=== PATIENT | female | born 1955 | race Caucasian/White ===

== ENCOUNTER 2020-05-05 03:21 | Observation (INO) | payer MEDICARE, OTHER ==
[~2020-05-05] VITALS: Ht 162.6 cm; Wt 75.0 kg
--- NOTE | 2020-05-05 03:45 | PHYS DOC ---
General Adult EDM: Chief Complaint: CHEST WALL PAIN HPI: HPI: Patient is a 64 year old female who presents with complaints of chest pain. Patient states that around 3:00 this morning she was awoken by a pressure sensation in her chest that was bilateral anterior and nonradiating. Patient reports that she feels like she cannot take a deep breath. She denies any nausea, vomiting, diaphoresis, change in cough, fever, chills or sweats. Patient denied nausea, vomiting, melena or hematochezia. The pain is been constant and has not resolved. Patient reports she has had no change in exercise tolerance in the last month. Review of Systems: Review of Systems: Constitutional: Denies fever or chills. [] Eyes: Denies change in visual acuity. [] HENT: Denies nasal congestion or sore throat. [] Respiratory: See HPI [] Cardiovascular: See HPI [] GI: Denies abdominal pain, nausea, vomiting, bloody stools or diarrhea. [] : Denies dysuria. [] Musculoskeletal: Denies back pain or joint pain. [] Integument: Denies rash. [] Neurologic: Denies headache, focal weakness or sensory changes. [] Endocrine: Denies polyuria or polydipsia. [] Lymphatic: Denies swollen glands. [] Psychiatric: Denies depression or anxiety. [] Heart Score: HEART Score for Chest Pain: HEART Score for Chest Pain Response (Comments) Value History Moderately Suspicious 1 ECG Normal 0 Age > 65 2 Risk Factors >3 Risk Factors or Hx CAD 2 Total 5 Risk Factors: Risk Factors: DM, Current or recent (<one month) smoker, HTN, HLP, family history of CAD, obesity. Risk Scores: Score 0 - 3: 2.5% MACE over next 6 weeks - Discharge Home Score 4 - 6: 20.3% MACE over next 6 weeks - Admit for Clinical Observation Score 7 - 10: 72.7% MACE over next 6 weeks - Early Invasive Strategies Allergies: Allergies: Allergies Coded Allergies Type Severity Reaction Last Updated Verified ciprofloxacin Allergy Unknown 05/05/20 Yes latex Allergy Unknown 05/05/20 Yes sulfamethoxazole Allergy Unknown 05/05/20 Yes trimethoprim Allergy Unknown 05/05/20 Yes Physical Exam: PE: Constitutional: Well developed, well nourished, no acute distress, non-toxic appearance. [] HENT: Normocephalic, atraumatic, bilateral external ears normal, oropharynx moist, no oral exudates, nose normal. [] Eyes: PERRLA, EOMI, conjunctiva normal, no discharge. [] Neck: Normal range of motion, no tenderness, supple, no stridor. [] Cardiovascular:Heart rate regular rhythm, grade 1/6 systolic murmur, chest wall tender to palpation but does not reproduce the pain, no S3 or S4, no JVD, bruit or shift of PMI, pulses 1/2 dorsalis pedis bilaterally [] Lungs & Thorax: Bilateral breath sounds clear to auscultation [] Abdomen: Bowel sounds normal, soft, no tenderness, no masses, no pulsatile masses. [] Skin: Warm, dry, no erythema, no rash. [] Back: No tenderness, no CVA tenderness. [] Extremities: No tenderness, no cyanosis, moderate clubbing, ROM intact, no edema. Symmetric radial pulses bilaterally. [] Neurologic: Alert and oriented X 3, normal motor function, normal sensory function, no focal deficits noted. [] Psychologic: Anxious affect, judgement normal, mood anxious. [] EKG: EK bpm, sinus rhythm, incomplete right bundle branch block, abnormal EKG normal axis normal intervals [] Radiology/Procedures: Radiology/Procedures: [] Course & Med Decision Making: Course & Med Decision Making Pertinent Labs and Imaging studies reviewed. (See chart for details) 0526-patient was seen and reevaluated. Patient reports that although the pain i mproved from the medications rendered here in the emergency department it did not resolve her chest pain. I discussed with the patient her laboratory testing. At this time as second troponin is pending. The patient will be turned over to Dr. Jacinto at 0600. [] Dragon Disclaimer: Dragon Disclaimer: This electronic medical record was generated, in whole or in part, using a voice recognition dictation system. Departure Departure Referrals: KAILA MONTIEL MD (PCP) Justicifation of Admission Dx: Justifications for Admission: Justification of Admission Dx: N/A GABRIELLE FERNANDEZ MD May 05, 2020 03:45
[2020-05-05 04:09] LABS: BASO # 0.1 x10^3/uL (0.0-0.2); BASO % 1 % (0-3); EOS # 0.2 x10^3/uL (0.0-0.7); EOS % 2 % (0-3); HEMATOCRIT 41.8 % (36.0-47.0); HEMOGLOBIN 14.2 g/dL (12.0-15.5); LYMPH # 1.9 x10^3/uL (1.0-4.8); LYMPH % 23 % (24-48); MEAN CORPUSCULAR HEMOGLOBIN 33 pg (25-35); MEAN CORPUSCULAR HGB CONC 34 g/dL (31-37); MEAN CORPUSCULAR VOLUME 96 fL (79-100); MONO # 0.8 x10^3/uL (0.0-1.1); MONO % 10 % (0-9); NEUT # 5.4 x10^3/uL (1.8-7.7); NEUT % 64 % (31-73); PLATELET COUNT 200 x10^3/uL (140-400); RED BLOOD COUNT 4.37 x10^6/uL (3.50-5.40); RED CELL DISTRIBUTION WIDTH 13.8 % (11.5-14.5); WHITE BLOOD COUNT 8.4 x10^3/uL (4.0-11.0)
[2020-05-05] MEDS ORDERED: FAMOTIDINE 20 MG TABLET. PO ONE (04:15)
[2020-05-05] MEDS ORDERED: MAG HYDROX/ALUMINUM HYD/SIMETH 30 ML ORAL.SUSP PO ONE (04:15)
[2020-05-05] MEDS ORDERED: ASPIRIN CHEWABLE 81 MG TABLET. PO ONE (04:15)
[2020-05-05] MEDS ORDERED: IV NORMAL SALINE 500ML BAG 500 ML IV ONE (04:15)
[2020-05-05 04:18] LABS: CALCIUM 9.2 mg/dL (8.5-10.1); CREATININE 0.6 mg/dL (0.6-1.0); POTASSIUM 3.6 mmol/L (3.5-5.1)
[2020-05-05 04:19] LABS: PROTHROMBIN TIME PATIENT 12.4 SEC (11.7-14.0)
[2020-05-05 04:23] LABS: D-DIMER 0.51 ug/mlFEU (0.00-0.50)
[2020-05-05 04:24] LABS: ALBUMIN 3.6 g/dL (3.4-5.0); ALBUMIN/GLOBULIN RATIO 0.8 (1.0-1.7); TOTAL BILIRUBIN 0.6 mg/dL (0.2-1.0); TOTAL PROTEIN 7.9 g/dL (6.4-8.2)
--- NOTE | 2020-05-05 05:17 | RAD ---
INDICATION: Reason: Chest pain / Spl. Instructions: / History: COMPARISON: None. FINDINGS: 2 views of the chest obtained. Cardiac silhouette is not enlarged. There is some calcified lymph nodes seen within the mediastinum which could be sequela of old granulomatous disease. Degenerative changes of the spine with osteophyte formation and osseous demineralization. Mild disorganization of the pulmonary markings without focal airspace consolidation. IMPRESSION: * No focal airspace consolidation. * There is some disorganization of the pulmonary markings. Correlate for possible causes such as emphysema or asthma. Electronically signed by: Tyree Santos MD (05/05/2020 5:14 AM) [id number]
--- NOTE | 2020-05-05 08:40 | PDOC1 ---
History and Physical Date of Admission Date of Admission DATE: 05/05/20 TIME: 08:38 History of Present Illness History of Present Illness Ms Bullock is a 64 yo F with past medical history of hyperlipidemia who presents via private vehicle driven by her with complaints of chest pain. Patient states that around 0245 this morning she was awoken by a pressure sensation in her chest that was bilateral anterior and radiating into bilateral shoulders and mid-back. Patient reports that she feels like she cannot take a deep breath. She denies any nausea, vomiting, diaphoresis, change in cough, fever, chills or sweats. Patient denied nausea, vomiting, melena or hematochezia. The pain is been constant and has not resolved, but improved with ASA and GI cocktail. Patient reports she has had no change in exercise tolerance in the last month. She does not drink alcohol, and yesterday eggs salad for dinner and had celery and carrots for lunch. She notes she is never experienced a sensation like this. She does note she had a treadmill stress test at [facility] 10 years ago and had a coronary artery calcium score at that time she noted was elevated but failed to follow-up. She does continue to smoke. She is even more concerned because 3 years ago her had similar symptoms and had an IA. She has not had an EGD or GI work- up previously either. She has no recent travel, no recent sick contacts stays home with her . She has no leg swelling in either leg and no history of DVT or recent bedbound status or orthopedic surgery, no family history of blood clotting disorders that she is aware of. EKG appears 76 bpm, sinus rhythm, incomplete right bundle branch block, abnormal EKG normal axis normal intervals. 2 troponins are negative. D-dimer elevated 0.81, INR 1, WBC 8.4, Hb 14.2, platelets 200, LDL cholesterol 104, NA 140, K3.6, BUN 11, CR 0.6, glucose 106. Admitted to hospital for observation of her chest pain Past Medical History Cardiovascular: Hyperlipidemia Past Surgical History Past Surgical History: Colon Resection Family History Family History: Coronary Artery Disease, High Cholestrol, Hypertension Social History Smoke: 1 pack per day ALCOHOL: none Drugs: None Current Medications Current Medications Current Medications Aspirin (Aspirin Chewable) 162 mg 1X ONCE PO Last administered on 05/05/20at 04:33; Start 05/05/20 at 04:15; Stop 05/05/20 at 04:16; Status DC Al Hydroxide/Mg Hydroxide (Mylanta Plus Xs) 30 ml 1X ONCE PO Last administered on 05/05/20at 04:34; Start 05/05/20 at 04:15; Stop 05/05/20 at 04:16; Status DC Famotidine (Pepcid) 20 mg 1X ONCE PO Last administered on 05/05/20at 04:33; Start 05/05/20 at 04:15; Stop 05/05/20 at 04:16; Status DC Sodium Chloride 500 ml @ 500 mls/hr 1X ONCE IV Last administered on 05/05/20at 04:35; Start 05/05/20 at 04:15; Stop 05/05/20 at 05:14; Status DC Allergies Allergies: Coded Allergies: ciprofloxacin (Verified Allergy, Unknown, 05/05/20) latex (Verified Allergy, Unknown, 05/05/20) sulfamethoxazole (Verified Allergy, Unknown, 05/05/20) trimethoprim (Verified Allergy, Unknown, 05/05/20) ROS General: No: Chills, Night Sweats, Fatigue, Malaise, Appetite, Other PSYCHOLOGICAL ROS: No: Anxiety, Behavioral Disorder, Concentration difficultie, Decreased libido, Depression, Disorientation, Hallucinations, Hostility, Irritablity, Memory difficulties, Mood Swings, Obsessive thoughts, Physical abuse, Sexual abuse, Sleep disturbances, Suicidal ideation, Other Eyes: No Blurry vision, No Decreased vision, No Double vision, No Dry eyes, No Excessive tearing, No Eye Pain, No Itchy Eyes, No Loss of vision, No Photophobia, No Scotomata, No Uses contacts, No Uses glasses, No Other HEENT: No: Heacaches, Visual Changes, Hearing change, Nasal congestion, Nasal d ischarge, Oral lesions, Sinus pain, Sore Throat, Epistaxis, Sneezing, Snoring, Tinnitus, Vertigo, Vocal changes, Other ALLERGY AND IMMUNOLOGY: No: Hives, Insect Bite Sensitivity, Itchy/Watery Eyes, Nasal Congestion, Post Nasal Drip, Seasonal Allergies, Other Hematological and Lymphatic: No: Bleeding Problems, Blood Clots, Blood Transfusions, Brusing, Night Sweats, Pallor, Swollen Lymph Nodes, Other ENDOCRINE: No: Breast Changes, Galactorrhea, Hair Pattern Changes, Hot Flashes, Malaise/lethargy, Mood Swings, Palpitations, Polydipsia/polyuria, Skin Changes, Temperature Intolerance, Unexpected Weight Changes, Other Breast: No New/Changing Breast Lumps, No Nipple changes, No Nipple discharge, No Other Respiratory: YES: Shortness of breath; No: Cough, Hemoptysis, Orthopnea, Pleuritic Pain, SOB with excertion, Sputum Changes, Stridor, Tachypnea, Wheezing, Other Cardiovascular: yes Chest Pain; No Palpitations, No Orthopnea, No Paroxysmal Noc. Dyspnea, No Edema, No Lt Headedness, No Other Gastrointestinal: No Nausea, No Vomiting, No Abdominal Pain, No Diarrhea, No Constipation, No Melena, No Hematochezia, No Other Genitourinary: No Dysuria, No Frequency, No Incontinence, No Hematuria, No Retention, No Discharge, No Urgency, No Pain, No Flank Pain, No Other, No , No , No , No , No , No , No Musculoskeletal: No Gait Disturbance, No Joint Pain, No Joint Stiffness, No Joint Swelling, No Muscle Pain, No Muscular Weakness, No Pain In:, No Swelling In:, No Other Neurological: No Behavorial Changes, No Bowel/Bladder ControlChng, No Confusion, No Dizziness, No Gait Disturbance, No Headaches, No Impaired Coord/balance, No Memory Loss, No Numbness/Tingling, No Seizures, No Speech Problems, No Tremors, No Visual Changes, No Weakness, No Other Skin: No Dry Skin, No Eczema, No Hair Changes, No Lumps, No Mole Changes, No Mottling, No Nail Changes, No Pruritus, No Rash, No Skin Lesion Changes, No Other, No Acne Physical Exam General: Alert, Oriented X3, Cooperative, mild distress HEENT: Atraumatic, PERRLA, EOMI, Mucous membr. moist/pink Lungs: Clear to auscultation, Normal air movement Heart: S1S2, RRR, no thrills, no rubs, no gallops, no murmurs Abdomen: Normal bowel sounds, Soft, No tenderness, No hepatosplenomegaly, No masses Rectal Exam: not examined Extremities: No clubbing, No cyanosis, No edema, Normal pulses, No tenderness/swelling Skin: No rashes, No breakdown, No significant lesion Neuro: Normal gait, Normal speech, Strength at 5/5 X4 ext, Normal tone, Sensation intact, Cranial nerves 3-12 NL, Reflexes 2+ Psych/Mental Status: Mental status NL, Mood NL Vitals Vitals Vital Signs Date Time Temp Pulse Resp B/P (MAP) Pulse Ox O2 Delivery O2 Flow Rate FiO2 05/05/20 05:56 66 131/69 (89) 97 Room Air 05/05/20 03:25 97.8 20 97.8 Labs Labs Laboratory Tests Test 05/05/20 03:39 05/05/20 06:27 White Blood Count 8.4 x10^3/uL (4.0-11.0) Red Blood Count 4.37 x10^6/uL (3.50-5.40) Hemoglobin 14.2 g/dL (12.0-15.5) Hematocrit 41.8 % (36.0-47.0) Mean Corpuscular Volume 96 fL (79-100) Mean Corpuscular Hemoglobin 33 pg (25-35) Mean Corpuscular Hemoglobin Concent 34 g/dL (31-37) Red Cell Distribution Width 13.8 % (11.5-14.5) Platelet Count 200 x10^3/uL (140-400) Neutrophils (%) (Auto) 64 % (31-73) Lymphocytes (%) (Auto) 23 % (24-48) Monocytes (%) (Auto) 10 % (0-9) Eosinophils (%) (Auto) 2 % (0-3) Basophils (%) (Auto) 1 % (0-3) Neutrophils # (Auto) 5.4 x10^3/uL (1.8-7.7) Lymphocytes # (Auto) 1.9 x10^3/uL (1.0-4.8) Monocytes # (Auto) 0.8 x10^3/uL (0.0-1.1) Eosinophils # (Auto) 0.2 x10^3/uL (0.0-0.7) Basophils # (Auto) 0.1 x10^3/uL (0.0-0.2) Prothrombin Time 12.4 SEC (11.7-14.0) Prothromb Time International Ratio 1.0 (0.8-1.1) Activated Partial Thromboplast Time 33 SEC (24-38) D-Dimer (Laura) 0.51 ug/mlFEU (0.00-0.50) Sodium Level 140 mmol/L (136-145) Potassium Level 3.6 mmol/L (3.5-5.1) Chloride Level 105 mmol/L (98-107) Carbon Dioxide Level 29 mmol/L (21-32) Anion Gap 6 (6-14) Blood Urea Nitrogen 11 mg/dL (7-20) Creatinine 0.6 mg/dL (0.6-1.0) Estimated GFR (Cockcroft-Gault) 100.0 BUN/Creatinine Ratio 18 (6-20) Glucose Level 106 mg/dL (70-99) Calcium Level 9.2 mg/dL (8.5-10.1) Total Bilirubin 0.6 mg/dL (0.2-1.0) Aspartate Amino Transf (AST/SGOT) 22 U/L (15-37) Alanine Aminotransferase (ALT/SGPT) 20 U/L (14-59) Alkaline Phosphatase 94 U/L (46-116) Troponin I Quantitative < 0.017 ng/mL (0.000-0.055) < 0.017 ng/mL (0.000-0.055) Total Protein 7.9 g/dL (6.4-8.2) Albumin 3.6 g/dL (3.4-5.0) Albumin/Globulin Ratio 0.8 (1.0-1.7) Lipase 108 U/L (73-393) Laboratory Tests Test 05/05/20 03:39 05/05/20 06:27 White Blood Count 8.4 x10^3/uL (4.0-11.0) Red Blood Count 4.37 x10^6/uL (3.50-5.40) Hemoglobin 14.2 g/dL (12.0-15.5) Hematocrit 41.8 % (36.0-47.0) Mean Corpuscular Volume 96 fL (79-100) Mean Corpuscular Hemoglobin 33 pg (25-35) Mean Corpuscular Hemoglobin Concent 34 g/dL (31-37) Red Cell Distribution Width 13.8 % (11.5-14.5) Platelet Count 200 x10^3/uL (140-400) Neutrophils (%) (Auto) 64 % (31-73) Lymphocytes (%) (Auto) 23 % (24-48) Monocytes (%) (Auto) 10 % (0-9) Eosinophils (%) (Auto) 2 % (0-3) Basophils (%) (Auto) 1 % (0-3) Neutrophils # (Auto) 5.4 x10^3/uL (1.8-7.7) Lymphocytes # (Auto) 1.9 x10^3/uL (1.0-4.8) Monocytes # (Auto) 0.8 x10^3/uL (0.0-1.1) Eosinophils # (Auto) 0.2 x10^3/uL (0.0-0.7) Basophils # (Auto) 0.1 x10^3/uL (0.0-0.2) Prothrombin Time 12.4 SEC (11.7-14.0) Prothromb Time International Ratio 1.0 (0.8-1.1) Activated Partial Thromboplast Time 33 SEC (24-38) D-Dimer (Laura) 0.51 ug/mlFEU (0.00-0.50) Sodium Level 140 mmol/L (136-145) Potassium Level 3.6 mmol/L (3.5-5.1) Chloride Level 105 mmol/L (98-107) Carbon Dioxide Level 29 mmol/L (21-32) Anion Gap 6 (6-14) Blood Urea Nitrogen 11 mg/dL (7-20) Creatinine 0.6 mg/dL (0.6-1.0) Estimated GFR (Cockcroft-Gault) 100.0 BUN/Creatinine Ratio 18 (6-20) Glucose Level 106 mg/dL (70-99) Calcium Level 9.2 mg/dL (8.5-10.1) Total Bilirubin 0.6 mg/dL (0.2-1.0) Aspartate Amino Transf (AST/SGOT) 22 U/L (15-37) Alanine Aminotransferase (ALT/SGPT) 20 U/L (14-59) Alkaline Phosphatase 94 U/L (46-116) Troponin I Quantitative < 0.017 ng/mL (0.000-0.055) < 0.017 ng/mL (0.000-0.055) Total Protein 7.9 g/dL (6.4-8.2) Albumin 3.6 g/dL (3.4-5.0) Albumin/Globulin Ratio 0.8 (1.0-1.7) Lipase 108 U/L (73-393) Images Images CXR: Cardiac silhouette is not enlarged. There is some calcified lymph nodes seen within the mediastinum which could be sequela of old granulomatous disease. Degenerative changes of the spine with osteophyte formation and osseous demineralization. Mild disorganization of the pulmonary markings without focal airspace consolidation. IMPRESSION: * No focal airspace consolidation. * There is some disorganization of the pulmonary markings. Correlate for possible causes such as emphysema or asthma. VTE Prophylaxis Ordered VTE Prophylaxis Devices: No VTE Pharmacological Prophylaxi: No Assessment/Plan Assessment/Plan A/P: Chest pain -with radiation of back, and shoulders associated shortness of breath, with elevated d-dimer will obtain CTPA. Cardiology consulted for high risk cardiac status given her age smoking status family history. Echocardiogram or stress imaging indicated. Smoker - counseled on cessation HLDcontinue statin FEN - NPO PPX - Ambulatory, will initiate eliquis 10mg BID for 7 days and 5mg BID after if PE is present FULL CODE Dispo - observation for chest pain Justicifation of Admission Dx: Justifications for Admission: Justification of Admission Dx: N/A KELLY NAIDU MD May 05, 2020 08:40
[2020-05-05 09:33] LABS: CHOLESTEROL/HDL RATIO 2.7
--- NOTE | 2020-05-05 09:34 | EKG ---
[facility] [address] [place] [address] Test Date: 2020-05-05 Test Time: 03:27:00 Pat Name: ALICIA MISHRA Department: Room: Gender: F [employer]at [employer] Inspector: : [id number] Requested By: GABRIELLE FERNANDEZ Order Number: [id number] Reading MD: Measurements Intervals [place] Rate: 76 P: 59 HI: 134 QRS: 65 QRSD: 90 T: 74 QT: 378 QTc: 430 Interpretive Statements SINUS RHYTHM
[2020-05-05 10:00] VITALS: BP 140/79
[2020-05-05 11:00] VITALS: BP 113/83
[2020-05-05] MEDS ORDERED: LIDO:MAALOX 1:1 20 ML SINGLE DOSE. SWSW ONE (11:00)
[2020-05-05] MEDS ORDERED: CONTRAST GIVEN. MC PRN (11:15)
[2020-05-05] MEDS ORDERED: IOHEXOL 350 MG/ML 100 ML VIAL. IV ONE (11:15)
[2020-05-05] MEDS ORDERED: PRAV20TA2 PO (11:24)
[2020-05-05] MEDS ORDERED: LISI-334 PO (11:24)
--- NOTE | 2020-05-05 13:21 | RAD ---
Chest CTA History: Chest pain, elevated d-dimer Technique: After bolus of intravenous contrast, CT imaging was performed of the chest. Multiplanar reconstruction images to include MIP reconstruction images are submitted. Exposure: One or more of the following individualized dose reduction techniques were utilized for this examination: 1. Automated exposure control 2. Adjustment of the mA and/or kV according to patient size 3. Use of iterative reconstruction technique. Comparison: None Findings: No pulmonary embolism is identified. There is no pneumothorax or pericardial fluid. There is some coronary calcification. Thoracic aortic caliber is within normal limits, no intraluminal flap. There are some calcified mediastinal and right hilar nodes. There is no significant pleural fluid. There is moderate to severe emphysema. There is mild linear density in the left mainstem bronchus and trachea more likely due to mucus. There are splenic granulomas. There is right lower lobe subpleural nodule image 100 series 3 about 0.5 cm. There may be a small right lower lobe subpleural nodule 0.4 cm image 112 series 3, also, other adjacent subpleural right lower lobe nodules with the largest about 0.7 cm image 109 series 3. There is right lower lobe nodule about 0.7 cm image 105 series 3. There is possible subpleural right upper lobe nodule 0.4 cm image 23. There are couple of tiny right upper lobe nodules about 0.2 cm image 77. There is 0.2 cm right middle lobe nodule image 102. There is 0.5 cm left lower lobe nodule image 112 series 3. There are couple of subpleural left lower lobe nodules, largest of these about 0.6 cm best seen image 104, also smaller left lower lobe subpleural nodule image 101. There is 0.5 cm left lower lobe subpleural nodule image 85 series 3. There is 0.6 cm left lower lobe nodule image 43 series 3. There is left apical nodularity about 1.5 cm image 113 series 3. There is 0.3 cm left upper lobe nodule image 64. There is 0.4 cm nodule along the left major fissure image 76. Impression: 1. No pulmonary embolism is identified. There is moderate to severe emphysema. Mild linear density in the trachea and left mainstem bronchus is more likely due to mucus. 2. There are multiple bilateral lung nodules. 3-6 month follow-up is recommended as per revised Fleischner guidelines. Electronically signed by: Maxx Santillan MD (05/05/2020 1:18 PM) [id number]
--- NOTE | 2020-05-05 13:26 | NUR ---
SS following for discharge planning. SS reviewed pt chart and discussed with pt RN. Pt is from home with spouse and is currently on room air. Pt having ECHO and CT. Pt being scheduled for outpatient stress test. Discharge plan is to home when ready. SS will continue to follow for discharge planning.
--- NOTE | 2020-05-05 13:37 | PDOC2 ---
ADRIAN RUFF [employer] OPERATOR 05/05/20 1337: CARDIAC CONSULT DATE OF CONSULT Date of Consult DATE: 05/05/20 TIME: 13:27 REASON FOR CONSULT Reason for Consult: Chest pain REFERRING PHYSICIAN Referring Physician: Christopher SOURCE Source: Chart review, Patient HISTORY OF PRESENT ILLNESS HISTORY OF PRESENT ILLNESS This is a pleasant 64 yo female admitted for complains of chest pain. Reports that she woke up this morning around 3 AM with burning chest discomfort midchest that went up to her anterior neck. This radiated to immediate mid back at the level of her stomach where she was pointing and also felt that it went around both of her ribcage like it was stretching. No SOA and no nausea or diaphoresis. Reports no changes to her activity tolerance and this is the first time she had this discomfort. She does have occasional heartburn and eats a lot of spicy foods. No known PUD, CAD, VTE or arrhythmias. Denies any palpitations and no exertional chest pain nor PATRICIA. No recent falls or injury. She takes pravastatin and could not tolerate lipitor and also takes lisinopril. She smokes tobacco but has not been told of COPD. Reports that she had +calcium scoring about 6 yrs ago and was told will just need to be repeated in 5 yrs. PAST MEDICAL HISTORY Cardiovascular: HTN, Hyperlipidemia Pulmonary: No pertinent hx CENTRAL NERVOUS SYSTEM: Carpal Tunnel Syndrome GI: No pertinent hx Musculoskeletal: Osteoarthritis, Other (shoulder impingement syndrome) Dermatology: Squamous cell PAST SURGICAL HISTORY Past Surgical History: Arthroscopy (hand surgery; left shoulder surgery), Colon Resection (sigmoid), Other (skin CA removal, neuroma removal) FAMILY HISTORY Family History: Coronary Artery Disease (mother at 80s) SOCIAL HISTORY Smoke: 1 pack per day ALCOHOL: none Drugs: None Lives: with Family CURRENT MEDICATIONS CURRENT MEDICATIONS Current Medications Medications (Trade) Dose Ordered Sig/[place]cca Route PRN Reason Start Time Stop Time Status Last Admin Dose Admin Aspirin (Aspirin Chewable) 162 mg 1X ONCE PO 05/05/20 04:15 05/05/20 04:16 DC 05/05/20 04:33 Al Hydroxide/Mg Hydroxide (Mylanta Plus Xs) 30 ml 1X ONCE PO 05/05/20 04:15 05/05/20 04:16 DC 05/05/20 04:34 Famotidine (Pepcid) 20 mg 1X ONCE PO 05/05/20 04:15 05/05/20 04:16 DC 05/05/20 04:33 Sodium Chloride 500 ml @ 500 mls/hr 1X ONCE IV 05/05/20 04:15 05/05/20 05:14 DC 05/05/20 04:35 Iohexol (Omnipaque 350 Mg/ml) 100 ml 1X ONCE IV 05/05/20 11:15 05/05/20 11:16 DC 05/05/20 11:15 ALLERGIES ALLERGIES: Coded Allergies: acetaminophen (Verified Allergy, Unknown, 05/05/20) ciprofloxacin (Verified Allergy, Unknown, 05/05/20) hydrocodone (Verified Allergy, Unknown, 05/05/20) latex (Verified Allergy, Unknown, 05/05/20) sulfamethoxazole (Verified Allergy, Unknown, 05/05/20) trimethoprim (Verified Allergy, Unknown, 05/05/20) ROS Review of System 14 point ROS evaluated with pertinent positives noted per HPI PHYSICAL EXAM General: Alert, Oriented X3, Cooperative, No acute distress HEENT: Atraumatic, Mucous membr. moist/pink Lungs: Clear to auscultation, Normal air movement Heart: Regular rate (SR), Normal S1, Normal S2, No murmurs Abdomen: Soft, No tenderness Extremities: No cyanosis, No edema Skin: No breakdown, No significant lesion Neuro: Normal speech, Sensation intact Psych/Mental Status: Mental status NL, Mood NL MUSCULOSKELETAL: Osteoarthritic changes both hands VITALS/I&O VITALS/I&O: Vital Signs Date Time Temp Pulse Resp B/P (MAP) Pulse Ox O2 Delivery O2 Flow Rate FiO2 05/05/20 11:00 98.1 63 18 113/83 (93) 96 Room Air 98.1 LABS Lab: Laboratory Tests Test 05/05/20 03:39 05/05/20 06:27 White Blood Count 8.4 x10^3/uL (4.0-11.0) Red Blood Count 4.37 x10^6/uL (3.50-5.40) Hemoglobin 14.2 g/dL (12.0-15.5) Hematocrit 41.8 % (36.0-47.0) Mean Corpuscular Volume 96 fL (79-100) Mean Corpuscular Hemoglobin 33 pg (25-35) Mean Corpuscular Hemoglobin Concent 34 g/dL (31-37) Red Cell Distribution Width 13.8 % (11.5-14.5) Platelet Count 200 x10^3/uL (140-400) Neutrophils (%) (Auto) 64 % (31-73) Lymphocytes (%) (Auto) 23 % (24-48) L Monocytes (%) (Auto) 10 % (0-9) H Eosinophils (%) (Auto) 2 % (0-3) Basophils (%) (Auto) 1 % (0-3) Neutrophils # (Auto) 5.4 x10^3/uL (1.8-7.7) Lymphocytes # (Auto) 1.9 x10^3/uL (1.0-4.8) Monocytes # (Auto) 0.8 x10^3/uL (0.0-1.1) Eosinophils # (Auto) 0.2 x10^3/uL (0.0-0.7) Basophils # (Auto) 0.1 x10^3/uL (0.0-0.2) Prothrombin Time 12.4 SEC (11.7-14.0) Prothrombin Time INR 1.0 (0.8-1.1) Activated Partial Thromboplast Time 33 SEC (24-38) D-Dimer (Laura) 0.51 ug/mlFEU (0.00-0.50) H Sodium Level 140 mmol/L (136-145) Potassium Level 3.6 mmol/L (3.5-5.1) Chloride Level 105 mmol/L (98-107) Carbon Dioxide Level 29 mmol/L (21-32) Anion Gap 6 (6-14) Blood Urea Nitrogen 11 mg/dL (7-20) Creatinine 0.6 mg/dL (0.6-1.0) Estimated GFR (Cockcroft-Gault) 100.0 BUN/Creatinine Ratio 18 (6-20) Glucose Level 106 mg/dL (70-99) H Calcium Level 9.2 mg/dL (8.5-10.1) Total Bilirubin 0.6 mg/dL (0.2-1.0) Aspartate Amino Transferase (AST) 22 U/L (15-37) Alanine Aminotransferase (ALT) 20 U/L (14-59) Alkaline Phosphatase 94 U/L (46-116) Troponin I Quantitative < 0.017 ng/mL (0.000-0.055) < 0.017 ng/mL (0.000-0.055) Total Protein 7.9 g/dL (6.4-8.2) Albumin 3.6 g/dL (3.4-5.0) Albumin/Globulin Ratio 0.8 (1.0-1.7) L Triglycerides Level 58 mg/dL (0-150) Cholesterol Level 186 mg/dL (0-200) LDL Cholesterol, Calculated 104 mg/dL (0-100) H VLDL Cholesterol, Calculated 12 mg/dL (0-40) Non-HDL Cholesterol Calculated 116 mg/dL (0-129) HDL Cholesterol 70 mg/dL (40-60) H Cholesterol/HDL Ratio 2.7 Lipase 108 U/L (73-393) Laboratory Tests 05/05/20 03:39 Laboratory Tests 05/05/20 03:39 ASSESSMENT/PLAN ASSESSMENT/PLAN 1. Atypical CP: possibly GI. refused GI cocktail. trop nml, EKG no acute changes 2. HLP 3. HTN: controlled 4. Tobaccoism with undiagnosed COPD Recommendations 1. Continue home BP med and statin 2. She does take ASA at home. PPI 3. TTE today and if unremarkable then will plan for outpt treadmill MPI 4. Smoking cessation ARSLAN RICHARDSON MD 05/06/20 0740: CARDIAC CONSULT ASSESSMENT/PLAN ASSESSMENT/PLAN Late entry for 05/05/2020 Pt. seen and examined. Agree with above WORT EXTRACTOR note. ADRIAN RUFF APRN May 05, 2020 13:37 ARSLAN RICHARDSON MD May 06, 2020 07:40
[2020-05-05] MEDS ORDERED: PANTOPRAZOLE 40 MG TABLET.DR. PO SCH (15:00)
[2020-05-05] MEDS ORDERED: PANT40TA77 PO (15:11)
[2020-05-05] MEDS ORDERED: FAMO-63 PO (15:11)
--- NOTE | 2020-05-05 15:18 | PDOC3 ---
Discharge Summary Visit Information Date of Admission: May 05, 2020 Date of Discharge: May 05, 2020 Admitting Diagnosis: Chest pain Final Diagnosis Problems Medical Problems: (1) Chest pain Status: Acute Brief Hospital Course Allergies Allergies Coded Allergies Type Severity Reaction Last Updated Verified acetaminophen Allergy Unknown 05/05/20 Yes ciprofloxacin Allergy Unknown 05/05/20 Yes hydrocodone Allergy Unknown 05/05/20 Yes latex Allergy Unknown 05/05/20 Yes sulfamethoxazole Allergy Unknown 05/05/20 Yes trimethoprim Allergy Unknown 05/05/20 Yes Vital Signs Vital Signs Date Time Temp Pulse Resp B/P (MAP) Pulse Ox O2 Delivery O2 Flow Rate FiO2 05/05/20 11:00 98.1 63 18 113/83 (93) 96 Room Air 98.1 Lab Results Laboratory Tests Test 05/05/20 03:39 05/05/20 06:27 05/05/20 12:50 White Blood Count 8.4 x10^3/uL (4.0-11.0) Red Blood Count 4.37 x10^6/uL (3.50-5.40) Hemoglobin 14.2 g/dL (12.0-15.5) Hematocrit 41.8 % (36.0-47.0) Mean Corpuscular Volume 96 fL (79-100) Mean Corpuscular Hemoglobin 33 pg (25-35) Mean Corpuscular Hemoglobin Concent 34 g/dL (31-37) Red Cell Distribution Width 13.8 % (11.5-14.5) Platelet Count 200 x10^3/uL (140-400) Neutrophils (%) (Auto) 64 % (31-73) Lymphocytes (%) (Auto) 23 % (24-48) Monocytes (%) (Auto) 10 % (0-9) Eosinophils (%) (Auto) 2 % (0-3) Basophils (%) (Auto) 1 % (0-3) Neutrophils # (Auto) 5.4 x10^3/uL (1.8-7.7) Lymphocytes # (Auto) 1.9 x10^3/uL (1.0-4.8) Monocytes # (Auto) 0.8 x10^3/uL (0.0-1.1) Eosinophils # (Auto) 0.2 x10^3/uL (0.0-0.7) Basophils # (Auto) 0.1 x10^3/uL (0.0-0.2) Prothrombin Time 12.4 SEC (11.7-14.0) Prothromb Time International Ratio 1.0 (0.8-1.1) Activated Partial Thromboplast Time 33 SEC (24-38) D-Dimer (Laura) 0.51 ug/mlFEU (0.00-0.50) Sodium Level 140 mmol/L (136-145) Potassium Level 3.6 mmol/L (3.5-5.1) Chloride Level 105 mmol/L (98-107) Carbon Dioxide Level 29 mmol/L (21-32) Anion Gap 6 (6-14) Blood Urea Nitrogen 11 mg/dL (7-20) Creatinine 0.6 mg/dL (0.6-1.0) Estimated GFR (Cockcroft-Gault) 100.0 BUN/Creatinine Ratio 18 (6-20) Glucose Level 106 mg/dL (70-99) Calcium Level 9.2 mg/dL (8.5-10.1) Total Bilirubin 0.6 mg/dL (0.2-1.0) Aspartate Amino Transf (AST/SGOT) 22 U/L (15-37) Alanine Aminotransferase (ALT/SGPT) 20 U/L (14-59) Alkaline Phosphatase 94 U/L (46-116) Troponin I Quantitative < 0.017 ng/mL (0.000-0.055) < 0.017 ng/mL (0.000-0.055) < 0.017 ng/mL (0.000-0.055) Total Protein 7.9 g/dL (6.4-8.2) Albumin 3.6 g/dL (3.4-5.0) Albumin/Globulin Ratio 0.8 (1.0-1.7) Triglycerides Level 58 mg/dL (0-150) Cholesterol Level 186 mg/dL (0-200) LDL Cholesterol, Calculated 104 mg/dL (0-100) VLDL Cholesterol, Calculated 12 mg/dL (0-40) Non-HDL Cholesterol Calculated 116 mg/dL (0-129) HDL Cholesterol 70 mg/dL (40-60) Cholesterol/HDL Ratio 2.7 Lipase 108 U/L (73-393) Laboratory Tests Test 05/05/20 03:39 05/05/20 06:27 05/05/20 12:50 White Blood Count 8.4 x10^3/uL (4.0-11.0) Red Blood Count 4.37 x10^6/uL (3.50-5.40) Hemoglobin 14.2 g/dL (12.0-15.5) Hematocrit 41.8 % (36.0-47.0) Mean Corpuscular Volume 96 fL (79-100) Mean Corpuscular Hemoglobin 33 pg (25-35) Mean Corpuscular Hemoglobin Concent 34 g/dL (31-37) Red Cell Distribution Width 13.8 % (11.5-14.5) Platelet Count 200 x10^3/uL (140-400) Neutrophils (%) (Auto) 64 % (31-73) Lymphocytes (%) (Auto) 23 % (24-48) Monocytes (%) (Auto) 10 % (0-9) Eosinophils (%) (Auto) 2 % (0-3) Basophils (%) (Auto) 1 % (0-3) Neutrophils # (Auto) 5.4 x10^3/uL (1.8-7.7) Lymphocytes # (Auto) 1.9 x10^3/uL (1.0-4.8) Monocytes # (Auto) 0.8 x10^3/uL (0.0-1.1) Eosinophils # (Auto) 0.2 x10^3/uL (0.0-0.7) Basophils # (Auto) 0.1 x10^3/uL (0.0-0.2) Prothrombin Time 12.4 SEC (11.7-14.0) Prothromb Time International Ratio 1.0 (0.8-1.1) Activated Partial Thromboplast Time 33 SEC (24-38) D-Dimer (Laura) 0.51 ug/mlFEU (0.00-0.50) Sodium Level 140 mmol/L (136-145) Potassium Level 3.6 mmol/L (3.5-5.1) Chloride Level 105 mmol/L (98-107) Carbon Dioxide Level 29 mmol/L (21-32) Anion Gap 6 (6-14) Blood Urea Nitrogen 11 mg/dL (7-20) Creatinine 0.6 mg/dL (0.6-1.0) Estimated GFR (Cockcroft-Gault) 100.0 BUN/Creatinine Ratio 18 (6-20) Glucose Level 106 mg/dL (70-99) Calcium Level 9.2 mg/dL (8.5-10.1) Total Bilirubin 0.6 mg/dL (0.2-1.0) Aspartate Amino Transf (AST/SGOT) 22 U/L (15-37) Alanine Aminotransferase (ALT/SGPT) 20 U/L (14-59) Alkaline Phosphatase 94 U/L (46-116) Troponin I Quantitative < 0.017 ng/mL (0.000-0.055) < 0.017 ng/mL (0.000-0.055) < 0.017 ng/mL (0.000-0.055) Total Protein 7.9 g/dL (6.4-8.2) Albumin 3.6 g/dL (3.4-5.0) Albumin/Globulin Ratio 0.8 (1.0-1.7) Triglycerides Level 58 mg/dL (0-150) Cholesterol Level 186 mg/dL (0-200) LDL Cholesterol, Calculated 104 mg/dL (0-100) VLDL Cholesterol, Calculated 12 mg/dL (0-40) Non-HDL Cholesterol Calculated 116 mg/dL (0-129) HDL Cholesterol 70 mg/dL (40-60) Cholesterol/HDL Ratio 2.7 Lipase 108 U/L (73-393) Brief Hospital Course Ms Bullock is a 64 yo F with past medical history of hyperlipidemia who presents via private vehicle driven by her with complaints of chest pain. Patient states that around 0245 this morning she was awoken by a pressure sensation in her chest that was bilateral anterior and radiating into bilateral shoulders and mid-back. Patient reports that she feels like she cannot take a deep breath. She denies any nausea, vomiting, diaphoresis, change in cough, fever, chills or sweats. Patient denied nausea, vomiting, melena or hematochezia. The pain is been constant and has not resolved, but improved with ASA and GI cocktail. Patient reports she has had no change in exercise tolerance in the last month. She does not drink alcohol, and yesterday eggs salad for dinner and had celery and carrots for lunch. She notes she is never experienced a sensation like this. She does note she had a treadmill stress test at [facility] 10 years ago and had a coronary artery calcium score at that time she noted was elevated but failed to follow-up. She does continue to smoke. She is even more concerned because 3 years ago her had similar symptoms and had an IN. She has not had an EGD or GI work- up previously either. She has no recent travel, no recent sick contacts stays home with her . She has no leg swelling in either leg and no history of DVT or recent bedbound status or orthopedic surgery, no family history of blood clotting disorders that she is aware of. EKG appears 76 bpm, sinus rhythm, incomplete right bundle branch block, abnormal EKG normal axis normal intervals. 2 troponins are negative. D-dimer elevated 0.81, INR 1, WBC 8.4, Hb 14.2, platelets 200, LDL cholesterol 104, NA 140, K3.6, BUN 11, CR 0.6, glucose 106. Admitted to hospital for observation of her chest pain. Troponin x3 negative. Seen by cardiology will have outpatient follow-up. Echocardiogram with normal hemodynamics normal valves. CTPA: No pulmonary embolism is identified. There is no pneumothorax or pericardial fluid. There is some coronary calcification. Thoracic aortic caliber is within normal limits, no intraluminal flap. There are some calcified mediastinal and right hilar nodes. There is no significant pleural fluid. There is moderate to severe emphysema. There is mild linear density in the left mainstem bronchus and trachea more likely due to mucus. There are splenic granulomas. There is right lower lobe subpleural nodule image 100 series 3 about 0.5 cm. There may be a small right lower lobe subpleural nodule 0.4 cm image 112 series 3, also, other adjacent subpleural right lower lobe nodules with the largest about 0.7 cm image 109 series 3. There is right lower lobe nodule about 0.7 cm image 105 series 3. There is possible subpleural right upper lobe nodule 0.4 cm image 23. There are couple of tiny right upper lobe nodules about 0.2 cm image 77. There is 0.2 cm right middle lobe nodule image 102. There is 0.5 cm left lower lobe nodule image 112 series 3. There are couple of subpleural left lower lobe nodules, largest of these about 0.6 cm best seen image 104, also smaller left lower lobe subpleural nodule image 101. There is 0.5 cm left lower lobe subpleural nodule image 85 series 3. There is 0.6 cm left lower lobe nodule image 43 series 3. There is left apical nodularity about 1.5 cm image 113 series 3. There is 0.3 cm left upper lobe nodule image 64. There is 0.4 cm nodule along the left major fissure image 76. Impression: 1. No pulmonary embolism is identified. There is moderate to severe emphysema. Mild linear density in the trachea and left mainstem bronchus is more likely due to mucus. 2. There are multiple bilateral lung nodules. 3-6 month follow-up is recommended as per revised Fleischner guidelines. For further discussion she notes that she has a remote history of histoplasmosis and had not had follow-up since then. She has referral to Dr. Hoang Herrera to see outpatient Chest pain - likely GERD, will treat Smoker - counseled on cessation HLDcontinue statin Pulmonary nodules - needs pulm f/u H/o histoplasmosis - needs pulm f/u Greater than 135 minutes spent on d/c Discharge Information Condition at Discharge: Improved Follow Up: Weeks (1) Disposition/Orders: D/C to Home Scheduled Famotidine (Pepcid) 20 Mg Tablet, 20 MG PO BID for GERD for 30 Days, #60 Ref 11 Prescribed by: KELLY NAIDU MD on 05/05/20 1511 Lisinopril (Lisinopril) 20 Mg Tablet, 20 MG PO HS for FOR HYPERTENSION, #30 Ref 0 (Reported) Entered as Reported by: MIRYAM GUTIERREZ on 05/05/201123 Last Taken: Unknown Dose on 05/04/20 Last Action: New Order on 05/05/201123 by MIRYAM GUTIERREZ Pantoprazole Sodium (Pantoprazole Sodium ) 40 Mg Tablet.dr, 40 MG PO DAILYAC for GERD for 30 Days, #30 Prescribed by: KELLY NAIDU MD on 05/05/20 1511 Pravastatin Sodium (Pravastatin Sodium) 20 Mg Tablet, 1 TAB PO QHS for cholesterol, #90 Ref 3 (Reported) Entered as Reported by: MIRYAM GUTIERREZ on 05/05/201123 Last Taken: Unknown Dose on 05/04/20 Last Action: New Order on 05/05/201123 by MIRYAM GUTIERREZ Justicifation of Admission Dx: Justifications for Admission: Justification of Admission Dx: N/A KELLY NAIDU MD May 05, 2020 15:18
--- NOTE | 2020-05-05 16:00 | CARD ---
MR#: [id number] Date of Study: 05/05/2020 Ordering Physician: ADRIAN RUFF, Referring Physician: ADRIAN RUFF, Tech: Noa Johnson APPROVED REPORT EXAM: Two-dimensional and M-mode echocardiogram with Doppler and color Doppler. Other Information Quality : FairHR: 66bpm INDICATION Chest Pain RISK FACTORS Hypertension Hyperlipidemia Smoking 2D DIMENSIONS RVDd2.2 (2.9-3.5cm)Left Atrium(2D)2.7 (1.6-4.0cm) IVSd0.8 (0.7-1.1cm)Aortic Root(2D)3.1 (2.0-3.7cm) LVDd4.5 (3.9-5.9cm)LVOT Diameter2.1 (1.8-2.4cm) PWd0.8 (0.7-1.1cm)LVDs2.5 (2.5-4.0cm) FS (%) 43.9 %SV69.8 ml LVEF(%)75.2 (>50%) Aortic Valve AoV Peak Caesar.97.5cm/sAoV VTI24.6cm AO Peak GR.3.8mmHgLVOT Peak Caesar.92.3cm/s LVOT VTI 20.37cmAO Mean GR.2mmHg ELDA (VMAX)2.91qg6RHM (VTI)2.86cm2 Mitral Valve MV E Jtutrolr07.7cm/sMV DECEL [id number] MV A Fmnvxomz50.1cm/sMV E Mean Gr.2mmHg MV [id number]/A Ratio1.5 MVA (PHT)3.45cm2 TDI E/Lateral E'10.3E/Medial E'11.1 Pulmonary Valve PV Peak Ilktztxf52.2cm/sPV Peak Grad.3mmHg Tricuspid Valve TR P. Emrgajwm149ca/sRAP [id number] TR Peak Gr.81ulBqVTCN17ttUz Pulmonary Vein S1 Flzthqrs76.6cm/sD2 Jlyvwwhf99.2cm/s PVa [id number] LEFT VENTRICLE The left ventricle is normal size. There is normal left ventricular wall thickness. The left ventricu lar systolic function is normal. The Ejection Fraction is 55-60%. There is normal LV segmental wall m otion. RIGHT VENTRICLE The right ventricle is normal size. There is normal right ventricular wall thickness. The right ventr icular systolic function is normal. ATRIA The left atrium size is normal. The right atrium size is normal. The interatrial septum is intact wit h no evidence for an atrial septal defect or patent foramen ovale as noted on 2-D or Doppler imaging. AORTIC VALVE The aortic valve is thickened but opens well. Doppler and Color Flow revealed no significant aortic r egurgitation. There is no significant aortic valvular stenosis. Calculated aortic valve area is 2.93 cm2 with maximum pressure gradient of 4 mmHg and mean pressure gradient of 3 mmHg. MITRAL VALVE The mitral valve is normal in structure and function. There is no evidence of mitral valve prolapse. There is no mitral valve stenosis. Doppler and Color-flow revealed trace mitral regurgitation. TRICUSPID VALVE The tricuspid valve is normal in structure and function. Doppler and Color Flow revealed trace tricus pid regurgitation with an estimated PAP of 34 mmHg. There is no tricuspid valve stenosis. PULMONIC VALVE The pulmonic valve is not well visualized. Doppler and Color Flow revealed no pulmonic valvular regur gitation. GREAT VESSELS The aortic root is normal in size. The IVC is normal in size and collapses >50% with inspiration. PERICARDIAL EFFUSION There is no evidence of significant pericardial effusion. Critical Notification Critical Value: No <Conclusion> The left ventricular systolic function is normal. The Ejection Fraction is 55-60%. There is normal LV segmental wall motion. Trace mitral regurgitation. Trace tricuspid regurgitation with an estimated PAP of 34 mmHg. There is no evidence of significant pericardial effusion. Signed by : Hugh Palma, Electronically Approved : 05/05/2020 16:00:03
--- NOTE | 2020-05-05 16:34 | NUR ---
Discharge Note: ALICIA MISHRA [address] Discharge instructions and discharge home medications reviewed with Patient and a copy given. All questions have been answered and understanding verbalized. The following instructions and handouts were given: chest pain, smoking cessation, and tredmill scress test. Discontinued lines and drains: peripheral IV discontinued. Patient discharged to home with spouse via ambulation.
== END 2020-05-05 16:25 | disposition home or self-care (01) ==
LOC: ER 03:21 → 2 SOUTH 08:40
PROVIDERS: ADMIT Internal Medicine; ATTEND Internal Medicine
DX: R07.89 Other chest pain (principal); I10 Essential (primary) hypertension; E78.5 Hyperlipidemia, unspecified; M19.90 Unspecified osteoarthritis, unspecified site; G56.00 Carpal tunnel syndrome, unspecified upper limb; F17.210 Nicotine dependence, cigarettes, uncomplicated; Z98.890 Other specified postprocedural states; Z79.82 Long term (current) use of aspirin
CPT/HCPCS: 36415; 71046; 71275; 80053; 80061; 83690; 84484; 85025; 85379; 85610; 85730; 93005; 93306; 99285; G0378; J7040; Q9967; G0379